=== PATIENT | female | born 1975 | race Caucasian/White ===

== ENCOUNTER 2020-10-11 16:19 | Emergency (ER) | payer MEDICAID, SELFPAY ==
[2020-10-11 16:22] VITALS: BP 117/70; PULSE 95; RESP 14; TEMP 36.2; O2SAT 99; BMI 27.1
--- NOTE | 2020-10-11 17:13 | CT_ITS ---
STUDY: CT BRAIN WITHOUT CONTRAST REASON FOR EXAM: Female, 44 years old. Pain. Migraine headache for 3 weeks. RADIATION DOSAGE (If Supplied By Facility): CTDIvol = ( 44.99 ) mGy, DLP = ( 745.49 ) mGycm TECHNIQUE: Transaxial CT imaging of the brain was performed without administration of intravenous contrast material. Individualized dose optimization techniques were used for this CT. COMPARISON: No relevant priors. FINDINGS: Normal soft tissue structures. Normal calvarium. Normal size ventricles and extra-axial spaces for the patient''s age. Normal white matter tracts of the cerebral hemispheres. Normal basal ganglia and thalami. Normal brainstem. Normal cerebellum. There is no intracranial hemorrhage. There are no findings of an acute ischemic infarction. Normal visualized paranasal sinuses. CT/Brain/Head without Contrast IMPRESSION: Normal unenhanced CT scan of the brain. Electronically Signed: Rudy Veloz DO at 18:09 EDT Tel [phone], Service support ,
--- NOTE | 2020-10-11 17:13 | EX.ED.VIS.HA ---
HPI History of Present Illness Chief Complaint: Headache Informant: patient Onset/Context/Timing Onset: Weeks (3+ weeks) Context: Gradual Timing: Waxes and wanes Quality -Headache: Positive for Throbbing and Tightness Current Severity: Moderate Maximum Severity: Severe Narrative Narrative: Patient presents secondary to migraine headache. She is a history of migraines. She states this particular episode has been going on for at least 3 weeks. She states she has had migraines last this long previously. She has been getting dizzy spells with some numbness and tingling in the right side of her face and arm. She has had this occur 2 times previously as well. Patient states that she follows with a neurologist in [place]. She is currently on Wellbutrin and tizanidine for her migraines. [facility] Medical History (Updated 10/11/20 @ 19:[address] Alecia Lauren MD) Cholecystectomy planned Migraines Home Medications bupropion HCl 150 mg PO DAILY 10/11/20 [History Last Taken Unknown] diphenhydramine HCl [Benadryl] 50 mg PO TID PRN #20 cap 10/11/20 [Rx Last Taken Unknown] metoclopramide HCl [Reglan] 10 mg PO Q8H PRN PRN #14 tab 10/11/20 [Rx Last Taken Unknown] tizanidine 4 mg PO TID PRN 10/11/20 [History Last Taken Unknown] Allergy/AdvReac Type Severity Reaction Status Date / Time codeine Allergy Hives Verified 10/11/20 16:22 morphine Allergy Itching Verified 10/11/20 16:22 NSAIDS (Non-Steroidal AdvReac Other Verified 10/11/20 16:22 Anti-Inflamma Surgical History (Updated 10/11/20 @ 17:36 by Faye Brandt) Bariatric surgery status History of appendectomy Hx of breast reduction, elective Social History Smoking Status: Never smoker ROS ROS ED Constitutional Constitutional ED: Denies chills or fever(s) Eyes Eyes: Denies change in vision ENT ENT ED: Denies sore throat Cardiovascular Cardiovascular: Denies chest pain Respiratory/Chest Respiratory/Chest: Denies cough or dyspnea Gastrointestinal Gastrointestinal: Reports nausea; Denies abdominal pain, diarrhea or vomiting Genitourinary Genitourinary ED: Denies dysuria Musculoskeletal Musculoskeletal: Denies back pain Integumentary Denies rash Neurologic Neurologic: Reports headache(s) and paresthesias; Denies weakness Psychiatric Psychiatric: Denies anxiety or depression Endocrine Endocrinology: Denies polydipsia or polyuria Allergic/Immunologic Allergic/Immunologic ED: Denies urticaria EXAM Physical Exam Const Vital Signs: 10/11/20 16:22 Temperature 97.1 F L Temperature Source Temporal Pulse Rate 95 Respiratory Rate 14 Blood Pressure 117/70 Blood Pressure Mean 85 Pulse Ox 99 Oxygen Delivery Method Room Air Positive well nourished and well developed General Appearance ED: well developed HEENT Reports normocephalic and head/scalp atraumatic Eyes PERRL and EOMs intact bilaterally Neck supple Chest Wall inspection of chest normal and palpation of chest normal Resp normal respiratory effort and clear to auscultation bilaterally Cardio regular rate and regular rhythm GI normal to inspection, nondistended, normoactive bowel sounds Palpation: soft Extremity normal to inspection Neuro oriented x3 Neuro Narrative: Patient reports decrease in station to light touch on the right face and right arm. Equal sensation noted in the lower extremities. Sensorium / Orientation: alert Motor Exam: strength 5/5 throughout Psych mental status grossly normal Skin no rashes or lesions noted MDM MDM MDM Narrative Medical decision making narrative: Patient is given Tylenol, Reglan, Benadryl, IV fluids. She is also given methylprednisolone. Head CT obtained. Radiography Diagnostic Testing: Radiology Impression Brain CT 10/11/20 17:13 IMPRESSION: Normal unenhanced CT scan of the brain. Electronically Signed: Rudy Veloz DO at 18:09 EDT Tel [phone], Service support , Treatment and Re-Evaluation Comments:: Head CT is unremarkable. On repeat evaluation patient does feel improved. She be discharged with prescriptions for Reglan and Benadryl and she can take Tylenol with this at home if needed. She will follow up with her neurologist. Discharge Plan Triage Chief Complaint: Headache ED Provider: Alecia Lauren Dx/Rx/DC Orders Clinical Impression: Migraine Instructions: ED, Migraine (Classical) Prescriptions: New metoclopramide HCl [Reglan] 10 mg tablet 10 mg PO Q8H PRN PRN (Reason: nausea and vomiting) Qty: 14 RF: 0 diphenhydramine HCl [Benadryl] 25 mg capsule 50 mg PO TID PRN (Reason: migraine headache) Qty: 20 RF: 0 No Action tizanidine 4 mg tablet 4 mg PO TID PRN (Reason: Muscle Pain) RF: 0 bupropion HCl 150 mg tablet extended release 24 hr 150 mg PO DAILY RF: 0 Primary Care Provider: Janeen Millan NP Referrals: Janeen Millan NP, [employer] [Primary Care Provider] - 1 Week if not improving Disposition Disposition: Home, Self Care
[2020-10-11] MEDS: Acetaminophen 500 MG Tablet 1000 MG PO (17:26)
[2020-10-11] MEDS: DiphenhydrAMINE 50 MG/ML Syringe 25 MG IV (17:32)
[2020-10-11] MEDS: 0.9% Normal Saline 1,000 ML 999 ML IV (17:32)
[2020-10-11] MEDS: Metoclopramide 10 MG/2 ML Vial IV (17:33)
[2020-10-11 19:54] VITALS: BP 121/73; PULSE 81; RESP 16; O2SAT 98
== END 2020-10-11 19:56 | disposition home or self-care (01) ==
PROVIDERS: Emergency Provider Emergency Medicine; PCP Nurse Practitioner Adult Health
DX: G43.909 Migraine, unspecified, not intractable, without status migrainosus (principal); Z79.899 Other long term (current) drug therapy
CPT/HCPCS: 70450; 96361; 96365; 96366; 96375; 99283; J7030; A4216; J2930